=== PATIENT | female | born 1970 | race African-American/Black ===

== ENCOUNTER 2023-07-06 06:13 | Emergency (ER) | payer OTHER ==
[~2023-07-06] VITALS: Ht 149.9 cm; Wt 61.0 kg
[2023-07-06 08:34] LABS: BASO % 0.2 % (0.0-1.0); EOS # 0.1 10^3/uL (0.0-0.5); EOS % 1.9 % (0.0-3.0); HEMATOCRIT 42.2 % (42.0-52.0); LYMPH # 1.9 10^3/uL (1.5-5.0); LYMPH % 40.2 % (24.0-44.0); MEAN CORPUSCULAR HEMOGLOBIN 32.4 pg (27.0-33.0); MEAN CORPUSCULAR HGB CONC 33.2 g/dl (32.0-36.5); MEAN CORPUSCULAR VOLUME 97.7 fl (80.0-96.0); MONO # 0.7 10^3/uL (0.0-0.8); MONO % 14.7 % (2.0-8.0); NEUTROPHILS % 42.8 % (36.0-66.0); PLATELET COUNT, AUTOMATED 298 10^3/uL (150-450); RED BLOOD COUNT 4.32 10^6/uL (4.30-6.10); WHITE BLOOD COUNT 4.8 10^3/uL (4.0-10.0)
[2023-07-06 09:11] LABS: ALBUMIN 3.7 G/DL (3.2-5.2); ALKALINE PHOSPHATASE 67 U/L (46-116); ALT/SGPT 16 U/L (7.0-40); AST/SGOT 40 U/L (<34); BILIRUBIN,DIRECT < 0.1 MG/DL (<0.4); BILIRUBIN,TOTAL 0.2 MG/DL (0.3-1.2); LIPASE 39 U/L (12-53); TOTAL PROTEIN 6.3 G/DL (5.7-8.2)
[2023-07-06] MEDS: NS 1,000 ML IV ONE (09:11)
[2023-07-06 10:05] LABS: ERYTHROCYTE SEDIMENTATION RATE 11 mm/hr (0-30)
[2023-07-06] MEDS: KETOROLAC 30 MG/ML 1ML VIAL IV ONE (10:16)
[2023-07-06] MEDS ORDERED: IBUP-1022 PO (11:49)
[2023-07-06] MEDS ORDERED: BENZ200C70 PO (11:49)
[2023-07-06 11:59] VITALS: BP 113/60; TEMP 96.5; O2SAT 97
== END 2023-07-06 12:35 | disposition home or self-care (01) ==
LOC: M ED 06:13 → EDSEX 06:13 → M ED 12:35
DX: K80.66 Calculus of gallbladder and bile duct with acute and chronic cholecystitis without obstruction (principal); D25.9 Leiomyoma of uterus, unspecified; B34.8 Other viral infections of unspecified site; R22.2 Localized swelling, mass and lump, trunk; Z79.1 Long term (current) use of non-steroidal anti-inflammatories (NSAID); Z79.811 Long term (current) use of aromatase inhibitors
CPT/HCPCS: 74176; 76705; 80047; 80076; 81001; 83605; 83690; 85025; 85652; 86140; 87486; 87581; 87633; 87798; 96361; 96374; 99284; J1885